=== PATIENT | male | born 1955 | race Hispanic/Latino ===

== ENCOUNTER → 2019-06-07 | Day surgery (SDC) | payer MEDICARE ==
[2019-06-05 12:55] LABS: BASOPHILS % 0.6 % (0.0-1.0); EOSINOPHILS # (AUTO) 0.1 (0.0-0.4); EOSINOPHILS % 1.9 % (0.0-6.0); HEMATOCRIT 36.5 % (38.2-49.6); HEMOGLOBIN 12.3 g/dL (14.0-18.0); LYMPHOCYTES # (AUTO) 1.2 (1.0-3.2); LYMPHOCYTES % 19.4 % (18.0-39.1); MEAN CORPUSCULAR HEMOGLOBIN 29.3 pg (28-32); MEAN CORPUSCULAR HGB CONC 33.7 g/dL (31-35); MEAN CORPUSCULAR VOLUME 86.9 fL (81-99); MONOCYTES # (AUTO) 0.5 (0.2-0.8); MONOCYTES % 8.1 % (4.4-11.3); NEUTROPHILS # (AUTO) 4.4 (2.1-6.9); NEUTROPHILS % 69.7 % (38.7-80.0); PLATELET COUNT 197 x10e3/uL (140-360); RED CELL DISTRIBUTION WIDTH 12.5 % (11.7-14.4)
[~2019-06-07] MED LIST: ATORVASTATIN CA10 MG PO; CHLORDIAZEPOXID25 MG PO; GABAPENTIN300 MG PO; GLIPIZIDE5 MG PO; LISINOPRIL-HCT1 EAC2; MIDAZOLAM HCL 2 MG/2 ML VIAL ONE; NOVOLIN N100 UNIT/1 SQ
--- OUTSIDE RECORDS SUMMARY | 2019-06-07 11:35 | XMS REPORT ---
[facility] Address Unknown Phone Unavailable Care Team Providers Care Doorperson Or Luggage Porter Name Role Phone Unavailable Unavailable Problems This patient has no known problems. Allergies, Adverse Reactions, Alerts This patient has no known allergies or adverse reactions. Medications This patient has no known medications. Encounters Start Date/Time End Date/Time Encounter Type Admission Type Attending [facility] Care Department Encounter ID 2018-11-13 00:00:00 2018-11-13 00:00:[address] [facility] [id number] 2018-10-11 00:00:00 2018-10-11 00:00:[address] [facility] [id number] 2018-10-04 00:00:00 2018-10-04 00:00:[address] [facility] [id number] 2018-09-26 09:41:01 2018-09-26 09:41:[address] [facility] [id number] 2018-09-20 09:46:57 2018-09-20 09:46:[address] [facility] [id number] 2018-08-16 08:16:13 2018-08-16 08:16:[address] [facility] [id number] 2018-08-10 00:00:00 2018-08-10 00:00:[address] [facility] [id number] 2018-07-17 09:02:05 2018-07-17 09:02:[address] [facility] [id number] 2018-07-10 09:39:28 2018-07-10 09:39:[address] [facility] [id number] 2018-06-26 10:21:42 2018-06-26 10:21:[address] [facility] [id number] 2018-05-10 14:24:32 2018-05-10 14:24:[address] [facility] [id number] 2018-04-11 08:33:44 2018-04-11 08:33:[address] [facility] [id number] 2018-04-03 14:30:02 2018-04-03 14:30:[address] [facility] [id number] 2018-04-03 13:32:07 2018-04-03 13:32:[address] [facility] [id number] 2018-04-03 00:00:00 2018-04-03 00:00:[address] [facility] [id number] 2018-03-01 08:41:11 2018-03-01 08:41:[address] [facility] [id number] 2018-02-13 08:39:50 2018-02-13 08:39:[address] [facility] [id number] 2017-12-09 08:29:54 2017-12-09 08:29:[address] [facility] [id number] 2017-12-07 14:41:42 2017-12-07 14:41:[address] [facility] [id number] 2017-10-25 09:41:39 2017-10-25 09:41:[address] [facility] [id number] 2017-10-24 13:53:53 2017-10-24 13:53:[address] [facility] [id number] 2017-10-18 13:55:00 2017-10-18 13:55:[address] [facility] [id number] 2017-10-14 13:59:50 2017-10-14 13:59:[address] [facility] [id number] 2017-10-12 03:14:38 2017-10-12 03:14:38 Emergency [facility] [id number]
[2019-06-07 14:25] VITALS: BP 131/75
== END | disposition home or self-care (01) ==
LOC: OR 11:27
PROVIDERS: ATTEND Internal Medicine
DX: K21.0 Gastro-esophageal reflux disease with esophagitis (principal); D12.3 Benign neoplasm of transverse colon; D12.4 Benign neoplasm of descending colon; K62.1 Rectal polyp; K29.70 Gastritis, unspecified, without bleeding; E66.9 Obesity, unspecified; I10 Essential (primary) hypertension; E11.9 Type 2 diabetes mellitus without complications; F32.9 Major depressive disorder, single episode, unspecified; Z88.6 Allergy status to analgesic agent; Z01.810 Encounter for preprocedural cardiovascular examination; Z01.812 Encounter for preprocedural laboratory examination; Z79.84 Long term (current) use of oral hypoglycemic drugs; Z68.39 Body mass index [BMI] 39.0-39.9, adult
CPT/HCPCS: 36415 ×2; 43239; 45380; 45385; 82948; 85025; 93005; J2250; 45378